=== PATIENT | female | born 1950 | race Caucasian/White ===

== ENCOUNTER 2017-01-26 08:56 | Outpatient (CLI) | payer MEDICARE, BC | END 2017-01-26 08:57 | disposition home or self-care (01) | LOC: DTY/OP 08:56 | PROVIDERS: ATTEND Family Medicine | DX: E11.29 Type 2 diabetes mellitus with other diabetic kidney complication (principal) | CPT/HCPCS: 97802 ==

== ENCOUNTER 2018-02-01 13:24 | Outpatient (CLI) | payer MEDICARE, BC | END 2018-02-01 13:25 | disposition home or self-care (01) | LOC: BICMAMMO 13:24 | PROVIDERS: ATTEND Family Medicine | DX: Z12.31 Encounter for screening mammogram for malignant neoplasm of breast (principal) | CPT/HCPCS: 77063; 77067 ==

== ENCOUNTER 2018-04-18 12:21 | Outpatient (CLI) | payer MEDICARE, BC ==
--- NOTE | 2018-04-18 13:43 | ULT ---
RENAL ULTRASOUND: HISTORY: Renal failure. TECHNIQUE: Real-time imaging of the right and left kidneys is performed. FINDINGS: The right kidney measures 10.7 and the left kidney 11 cm in size. The cortex is fairly well preserve d and of normal echogenicity. There are no signs of cyst, mass, or obstruction. The bladder region appears unremarkable. IMPRESSION: Unremarkable renal ultrasound. POS: [facility]
== END 2018-04-18 12:22 | disposition home or self-care (01) ==
LOC: BICULT 12:21
PROVIDERS: ATTEND Internal Medicine Nephrology
DX: N17.9 Acute kidney failure, unspecified (principal)
CPT/HCPCS: 76770

== ENCOUNTER 2019-05-04 08:15 | Outpatient (CLI) | payer MEDICARE ==
--- NOTE | 2019-05-04 09:06 | MMO ---
Bilateral MAMMO Bilat Screen [facility]. CLINICAL HISTORY: Patient is 69 years old and is seen for screening. The patient has no family history of breast cancer. The patient has no personal history of cancer. VIEWS: The views performed were: bilateral craniocaudal with tomosynthesis and bilateral mediolateral oblique with tomosynthesis. FILMS COMPARED: The present examination has been compared to prior imaging studies performed at [facility] on 08/01/2013, 08/09/2014, 01/30/2016 and 02/01/2018. This study has been interpreted with the assistance of computer-aided detection. MAMMOGRAM FINDINGS: There are scattered fibroglandular densities. There are stable benign appearing calcifications seen in both breasts. Nodularity is stable. There are no suspicious masses, suspicious calcifications, or new areas of architectural distortion. IMPRESSION: THERE IS NO MAMMOGRAPHIC EVIDENCE OF MALIGNANCY. A ROUTINE FOLLOW-UP MAMMOGRAM IN 1 YEAR IS RECOMMENDED. THE RESULTS OF THIS EXAM WERE SENT TO THE PATIENT. ACR BI-RADS Category 2 - Benign finding MAMMOGRAPHY NOTE: 1. A negative mammogram report should not delay a biopsy if a dominant of clinically suspicious mass is present. 2. Approximately 10% to 15% of breast cancers are not detected by mammography. 3. Adenosis and dense breasts may obscure an underlying neoplasm. Reported by: TONIE HENDRICKS MD Electonically Signed: [id number]
== END 2019-05-04 08:16 | disposition home or self-care (01) ==
LOC: BICMAMMO 08:15
PROVIDERS: ATTEND Family Medicine
DX: Z12.31 Encounter for screening mammogram for malignant neoplasm of breast (principal)
CPT/HCPCS: 77063; 77067

== ENCOUNTER 2020-05-05 08:57 | Outpatient (CLI) | payer MEDICARE ==
--- NOTE | 2020-05-05 10:37 | MMO ---
Bilateral MAMMO Bilat Screen [facility]. CLINICAL HISTORY: Patient is 70 years old and is seen for screening. The patient has no family history of breast cancer. The patient has no personal history of cancer. VIEWS: The views performed were: bilateral craniocaudal with tomosynthesis and bilateral mediolateral oblique with tomosynthesis. FILMS COMPARED: The present examination has been compared to prior imaging studies performed at [facility] on 08/09/2014, 01/30/2016, 02/01/2018 and 05/04/2019. This study has been interpreted with the assistance of computer-aided detection. MAMMOGRAM FINDINGS: There are scattered fibroglandular densities. Benign calcifications are noted bilaterally. There are no suspicious masses, suspicious calcifications, or new areas of architectural distortion. IMPRESSION: THERE IS NO MAMMOGRAPHIC EVIDENCE OF MALIGNANCY. A ROUTINE FOLLOW-UP MAMMOGRAM IN 1 YEAR IS RECOMMENDED. THE RESULTS OF THIS EXAM WERE SENT TO THE PATIENT. ACR BI-RADS Category 2 - Benign finding MAMMOGRAPHY NOTE: 1. A negative mammogram report should not delay a biopsy if a dominant of clinically suspicious mass is present. 2. Approximately 10% to 15% of breast cancers are not detected by mammography. 3. Adenosis and dense breasts may obscure an underlying neoplasm. Reported by: NADIR DOMÍNGUEZ MD Electonically Signed: [id number]
== END 2020-05-05 08:58 | disposition home or self-care (01) ==
LOC: BICMAMMO 08:57
PROVIDERS: ATTEND Family Medicine
DX: Z12.31 Encounter for screening mammogram for malignant neoplasm of breast (principal)
CPT/HCPCS: 77063; 77067

== ENCOUNTER 2020-05-12 09:45 | Outpatient (CLI) | payer MEDICARE ==
--- NOTE | 2020-05-12 10:33 | ULT ---
HEPATIC ULTRASOUND WITH HEPATIC DOPPLER: INDICATION: Cirrhosis. FINDINGS: The liver is heterogeneous. There is a focal hypoechoic lesion in the left lobe of the liver measuri ng approximately 1.0 cm. Hepatic vessels are evaluated with ultrasound and Doppler with color Doppler and spectral analysis. Hepatic vessels show normal blood flow and direction of blood flow. Vessel evaluated include hepatic veins, portal veins, hepatic artery, splenic vein, and splenic artery. Gallbladder has a normal sonographic appearance. No evidence of gallstones. The common duct is norm al caliber. Pancreas is unremarkable as visualized but is partially obscured. Aorta and IVC are imaged. Aorta and IVC show normal blood flow with spectral analysis. The kidneys are not imaged. IMPRESSION: 1. The liver is heterogeneous. There is a focal hypoechoic lesion in the left lobe measuring 1.0 cm which is indeterminate. Recommend CT abdomen with and without contrast following hepatic mass ursula col. 2. Doppler evaluation of hepatic vessels showed normal directional blood flow. POS: [facility]
== END 2020-05-12 09:46 | disposition home or self-care (01) ==
LOC: BICULT 09:45
PROVIDERS: ATTEND Internal Medicine Gastroenterology
DX: K74.60 Unspecified cirrhosis of liver (principal); R18.8 Other ascites; N28.9 Disorder of kidney and ureter, unspecified; R91.8 Other nonspecific abnormal finding of lung field
CPT/HCPCS: 76705

== ENCOUNTER 2020-05-28 09:38 | Outpatient (CLI) | payer MEDICARE ==
--- NOTE | 2020-05-28 12:33 | MRI ---
EXAM: MRI of the abdomen without and with contrast COMPARISON: Hepatic ultrasound 05/12/2020 HISTORY: Abnormal lesion seen in the liver on prior ultrasound TECHNIQUE: Multiplanar multi sequence MR images were taken of the abdomen without and with IV contras t. FINDINGS: Liver: The liver demonstrates a slightly nodular contour. No focal liver lesions or intrahepatic duct al dilatation. Specifically, no liver lesions seen along the anterior aspect of the left lobe of the liver. Slight signal loss in the liver on out of phase images is consistent with fatty infiltrati on. No abnormal enhancement. Gallbladder: No filling defects or gallbladder wall thickening. Common bile duct: Normal caliber without filling defects Adrenal glands: Unremarkable. Kidneys: No hydronephrosis or focal renal lesions. No abnormal areas of enhancement. Spleen: Unremarkable. Splenic varices. Pancreas: Scattered nonenhancing foci of high T2 signal measuring up to 9 mm in size represent cysts. No abnormal enhancement. Retroperitoneum: No enlarged lymph nodes Bones: No marrow signal abnormality. IMPRESSION: 1. Cirrhosis with sequelae of portal hypertension 2. Fatty liver 3. No suspicious liver lesions identified 4. Pancreatic cysts
[2020-05-28] MEDS ORDERED: Magnevist 469MG/ML 20 ML VIAL ONE (14:46)
== END 2020-05-28 09:39 | disposition home or self-care (01) ==
LOC: BICMRI 09:38
PROVIDERS: ATTEND Internal Medicine Gastroenterology
DX: K74.60 Unspecified cirrhosis of liver (principal); R93.89 Abnormal findings on diagnostic imaging of other specified body structures; K76.6 Portal hypertension; K76.0 Fatty (change of) liver, not elsewhere classified; K86.2 Cyst of pancreas
CPT/HCPCS: 74183; A9579

== ENCOUNTER 2021-04-07 09:29 | Outpatient (CLI) | payer MEDICARE | END 2021-04-07 09:30 | disposition home or self-care (01) | LOC: BICULT 09:29 | PROVIDERS: ATTEND Internal Medicine Gastroenterology | DX: K74.60 Unspecified cirrhosis of liver (principal) | CPT/HCPCS: 76705 ==

== ENCOUNTER 2021-06-19 12:50 | Outpatient (CLI) | payer MEDICARE | END 2021-06-19 12:51 | disposition home or self-care (01) | LOC: BICMAMMO 12:50 | PROVIDERS: ATTEND Family Medicine | DX: Z12.31 Encounter for screening mammogram for malignant neoplasm of breast (principal) | CPT/HCPCS: 77063; 77067 ==

== ENCOUNTER 2022-08-16 09:54 | Outpatient (CLI) | payer MEDICARE | END 2022-08-16 09:55 | disposition home or self-care (01) | LOC: BICMAMMO 09:54 | PROVIDERS: ATTEND Family Medicine | DX: Z12.31 Encounter for screening mammogram for malignant neoplasm of breast (principal) | CPT/HCPCS: 77063; 77067 ==